=== PATIENT | male | born 1955 | race Caucasian/White ===

== ENCOUNTER → 2020-06-15 | Outpatient (CLI) | payer BC ==
[~2020-06-15] MED LIST: DULOXETINE HCL30 MG PO; FISH OIL 1,2001 EAC3 PO; HYDROCHLOROTHIA25 M2 PO; HYDROCODON-ACE1 EAC7 PO; MS CONTIN15 MG PO; NAPROSYN500 M1 PO; NEURONTIN 300M300 M2 PO; NIACIN 500 MG500 M1 PO; OMEPRAZOLE40 MG PO; POTASSIUM GLUCO99 M2 PO; TOPROL XL50 MG PO; TRAMADOL 50 MG50 MG PO; WARFARIN SODIUM5 MG PO
== END ==
LOC: LAB 08:24
PROVIDERS: ATTEND Orthopaedic Surgery
DX: Z01.812 Encounter for preprocedural laboratory examination (principal)

== ENCOUNTER 2020-06-18 07:22 | Observation (INO) | payer BC, OTHER ==
[2020-06-15 09:59] LABS: HEMATOCRIT 40.9 % (42.0-52.0); MCH 30.3 pg (26.0-34.0); MCHC 34.2 g/dL (28.0-37.0); MCV 88.7 fL (80.0-100.0); RBC 4.6 mil/uL (4.50-6.00); RDW 13.1 % (10.5-14.5); WBC 5.5 thou/uL (4.0-11.0)
[2020-06-15 10:01] LABS: URINE BILIRUBIN NEGATIVE (Negative); URINE BLOOD NEGATIVE (Negative); URINE CLARITY CLEAR; URINE COLOR YELLOW; URINE GLUCOSE-RANDOM* NEGATIVE (Negative); URINE KETONES NEGATIVE (Negative); URINE LEUKOCYTES-REFLEX NEGATIVE (Negative); URINE NITRITE-REFLEX NEGATIVE (Negative); URINE PROTEIN (DIPSTICK) NEGATIVE (Negative); URINE SPECIFIC GRAVITY 1.015 (1.005-1.035); URINE UROBILINOGEN 0.2 E.U./dl (0.2-1.0)
[2020-06-15 10:12] LABS: ALBUMIN 4.1 g/dL (3.4-5.0); CALCIUM 9.5 mg/dL (8.5-10.1); CREATININE 1.1 mg/dL (0.7-1.3); POTASSIUM 4.4 mmol/L (3.5-5.1)
[2020-06-15 10:14] LABS: INR 1.4; PROTIME 14.7 Seconds (9.3-11.4)
[~2020-06-18] VITALS: Ht 182.9 cm; Wt 139.3 kg
[~2020-06-18 07:22] MED LIST changes: -HYDROCODON-ACE1 EAC7 PO; -MS CONTIN15 MG PO; -NEURONTIN 300M300 M2 PO
[2020-06-18 09:11] VITALS: BP 140/97
[2020-06-18 15:28] VITALS: BP 134/78
--- NOTE | 2020-06-18 15:56 | NUR ---
assessment: CM REVIEWED CHART AND MET WITH PATIENT. PT IS ALERT AND ORIENTED X4. PT IS S/P TKA. PT REPORTS LIVING AT HOME WITH HIS IN A HOUSE. PT HAS TWO STEPS TO ENTER WITH NO HANDRAIL. PT REPORTS ONCE INSIDE HE DOES NOT HAVE JING STEPS HE HAS TO USE. PT REPORTS THAT HE AMBULATES INDEPENDENTLY AND DOES NOT HAVE DME. PT WORKED WITH THERAPY AND IS IN NEED OF A WALKER. PT HAS NO PREFERENCE OF DME COMPANY. CM NOTIFIED [employer] AND THEY WILL CHECK PATIENTS INSURANCE IN THE AM. PT REPORTS HE PLANS TO DO OUTPATIENT THERAPY AT [facility] OFF [address] IN [place]. CM WILL CONTINUE TO FOLLOW TO ASSIST NEEDED.
[2020-06-18 17:00] VITALS: BP 141/83
--- NOTE | 2020-06-18 17:35 | NUR ---
PATIENT ADMITTED FROM OR WITH LEFT TOTAL KNEE REPLACEMENT, LAINEY DRESSING, KNEE HIGH SETH HOSE, SCD'S, POLAR CARE IN PLACE. PATIENT DENIES PAIN WHEN ADMISSION STARTED 0/10. PATIENT HAS RIGHT HAND IV IN PLACE. ADMISSION COMPLETED REPORT GIVEN TO ARIAS/YURI.
[2020-06-18 19:15] VITALS: BP 148/94
--- NOTE | 2020-06-18 23:39 | NUR ---
1900 ASSUMED CARE OF PT, 1999 BASELINE ASSESSMENT COMPLETE, PT RESTING IN BED WITH MINIMAL COMPLAINTS OF PAIN, POLAR PACK SETH HOSE AND SCDS IN PLACE, SENSATION TO LLE INTACT, PEDAL PULSES EQUAL AND PALPABLE AT 2+ CAP REFILL TO BLE <3 SEC AND PT ABLE TO MOVE LLE WITHOUT MUCH DIFFICULTY, STATES HE AMBULATED TODAY. FALL PRECAUTIONS IN PLACE, WILL CONTINUE TO MONITOR
[2020-06-19 04:28] VITALS: BP 129/76
[2020-06-19 06:25] LABS: HEMATOCRIT 37.7 % (42.0-52.0); HEMOGLOBIN 12.9 gm/dL (14.0-18.0); MCH 30.3 pg (26.0-34.0); MCHC 34.2 g/dL (28.0-37.0); MCV 88.6 fL (80.0-100.0); RBC 4.25 mil/uL (4.50-6.00); RDW 12.9 % (10.5-14.5); WBC 11.7 thou/uL (4.0-11.0)
[2020-06-19 07:25] VITALS: BP 157/95
[2020-06-19] MEDS ORDERED: HYDROCODON-ACE1 EAC7 PO (09:38)
[2020-06-19] MEDS ORDERED: MS CONTIN15 MG PO (09:39)
[2020-06-19] MEDS ORDERED: NEURONTIN 300M300 M2 PO (09:39)
--- NOTE | 2020-06-19 09:42 | O ---
[facility] [place] [address] OPERATIVE REPORT Name: JERRY MONGE Room #: 446-P [facility] M.R.#: [id number] Admission: 06/18/20 Attend Phys: Rosalio Tan MD Discharge: Date of : 55 Report #: [id number] THIS REPORT FOR: cc: JERZY GOODMAN Physician not on staff Rosalio Tan MD ~ CC: Physician staff JERZY Tan DATE OF SERVICE: 06/18/2020 PREOPERATIVE DIAGNOSIS: Left knee osteoarthritis. POSTOPERATIVE DIAGNOSIS: Left knee osteoarthritis. PROCEDURE: Left total knee arthroplasty using Navio robotic financial sales assistant. SURGEON: Rosalio Tan MD. SENIOR MEDIA PLANNER: Kimberly Blankenship PA-C. INDICATIONS FOR SENIOR MEDIA PLANNER: Throughout the case, extensive retraction and manipulation of the knee was required. This was afforded to me by my financial sales assistant. ANESTHESIA: LMA with an adductor canal block. IMPLANTS: Case and Nephew size 7 Journey II BCS Oxinium femur, size 5 tibia, size 9 constrained polyethylene and size 35 patella. TOURNIQUET TIME: 58 minutes. ESTIMATED BLOOD LOSS: 25 mL. COMPLICATIONS: None. SPECIMENS: None. CONDITION UPON LEAVING THE OPERATING ROOM: Stable. INDICATIONS FOR PROCEDURE: The patient is a 65-year-old gentleman with severe left knee osteoarthritis. He had failed conservative measures for this and after discussion with him, he elected for left total knee arthroplasty. DESCRIPTION OF PROCEDURE: Risks, benefits, alternatives, complications were discussed in detail with the patient including but not limited to risk of [facility] [address] [place] [address] OPERATIVE REPORT Name: JERRY MONGE Room #: 446-P [facility] M.RKalyn#: [id number] Admission: 06/18/20 Attend Phys: Rosalio Tan MD Discharge: Date of : 55 Report #: [id number] anesthesia, risk of damage to nerves, arteries, blood vessels, risk for infection and bleeding, risk for continued knee pain, need for reoperation. Informed consent was obtained from the patient. Left knee was appropriately marked in the preoperative holding area. IV Ancef was given for preoperative antibiotics. He was brought to the operating room and placed in supine position on the operating room table. LMA anesthesia was induced without complication. Tourniquet was placed on the left thigh. Left lower extremity was prepped and draped in normal sterile fashion. Timeout was performed properly identifying the patient and procedure as well as the instrumentation and implants. All in the operating room were in agreement. Left lower extremity was exsanguinated, tourniquet was inflated. Tourniquet time was 58 minutes. Standard midline approach to the knee was made with 10 blade through the skin. Dissection was taken down sharply to the fascia and deep flaps were developed medially and laterally. Fresh 10 blade was used to make a medial parapatellar arthrotomy and the knee was inspected. There was severe tricompartmental osteoarthritis. ACL and PCL were removed sharply. Reference pins were placed in the femur and the tibia. The knee was then digitally mapped using the [employer] robotic system. Intraoperative plan was made and we sized the size 7 femur with a size 5 tibia and a size 10 spacer. After acceptance of the intraoperative plan, the distal femoral cut was made with a Navio bur. Distal femoral cutting block was pinned in place and the chamfer cuts were made. Attention was turned to the tibia. Remainder of the menisci removed with Bovie cautery. Tibial resection guide was pinned in place using the Navio for placement and tibial resection was made. Flexion and extension gaps were then checked and found to have good balance in flexion and extension both medially and laterally. Tibia was sized, found to be a size 5. A size 5 tibial trial was placed, pinned and punched. A size 7 femoral trial was placed and the box cut was made. This was then trialed with a size 9 polyethylene and size 9 polyethylene demonstrated 1-2 millimeter of laxity medially throughout range of motion. There was up to 4 mm of laxity laterally and deep flexion. It was felt we could make up for this with a constrained implant, 9 mm was resected from the posterior surface of the patella and a size 35 patellar trial button was placed. Knee was taken through range of motion, found to be stable, found to have good patellar tracking. Trial components were removed. Bony ends were thoroughly irrigated with normal saline. Final size 5 tibia and size 7 Journey II BCS Oxinium femur and a size 35 patella were cemented in place using standard cementation techniques. While the cement cured, a periarticular injection consisting of morphine, ropivacaine, epinephrine and Toradol were placed around the knee joint capsule. After the cement cured, tourniquet was deflated. Hemostasis was obtained with Bovie cautery. A final size 9 constrained polyethylene was placed. A gram of vancomycin was placed deep in the joint. The fascia was closed with 0 Vicryl, skin was closed with 2-0 Vicryl, skin staple and a LAINEY dressing was applied. [address] [address] OPERATIVE REPORT Name: JERRY MONGE Room #: 446-P [facility] Omar Feliz#: [id number] Admission: 06/18/20 Attend Phys: Rosalio Tan MD Discharge: Date of : 55 Report #: [id number] The patient tolerated this procedure well and went to recovery room under care of anesthesia postoperatively. <ELECTRONICALLY SIGNED> By: Rosalio Tan MD 06/19/20 0942 [id number] Rosalio Tan MD /nt
[2020-06-19 10:59] VITALS: BP 157/95
--- NOTE | 2020-06-19 11:51 | NUR ---
PT CARE ASSUMED AT 0700. A&Ox4. PT UP WITH PT. PAIN CONTROLLED WELL WITH PAIN MEDICATION ON BOARD. LAINEY DRESSING, SCD'S, SETH HOSES, POLAR PACK IN PLACE. DISCHARGE INTRUCTIONS GIVEN TO PT AND SPOUSE WITH NO FURTHER INSTRUCTIONS GIVEN. IV REMOVED. FALL PROTOCOL AND CALL LIGHT IN PLACE.
== END 2020-06-19 11:35 | disposition home or self-care (01) ==
LOC: OR 07:22 → TBA 07:22 → OR 07:24 → 4S 14:12
PROVIDERS: ADMIT Orthopaedic Surgery; ATTEND Orthopaedic Surgery
DX: M17.12 Unilateral primary osteoarthritis, left knee (principal); Z79.899 Other long term (current) drug therapy
CPT/HCPCS: 27447; S2900; 50010; 50101; 50415; 50954; 51130; 51225; 51320; 51412; 53000; 53078; 53365; 56527; 56528; 57095; 57103; 57110; 57127; 57180; 62110; 62900; 64042; 70005

== ENCOUNTER → 2020-09-23 | Outpatient (CLI) | payer BC ==
[~2020-09-23] MED LIST changes: +ALLOPURINOL 10100 M2 PO; +CLARITIN10 MG PO; +CLONAZEPAM 0.50.5 M1 PO; +HYDROCODON-ACE1 EAC7 PO; +LO-DOSE ASPIRIN81 M1 PO; +MS CONTIN15 MG PO; +NAPROSYN500 MG PO; +NEURONTIN 300M300 M2 PO; +PENNSAID112 GM TOP; +TAMSULOSIN HCL0.4 MG PO; +TRAMADOL 50 MG50 MG
[2020-09-23 10:58] LABS: HEMOGLOBIN 12.1 gm/dL (14.0-18.0); MCH 28.3 pg (26.0-34.0); MCHC 33.7 g/dL (28.0-37.0); MCV 84.1 fL (80.0-100.0); RBC 4.28 mil/uL (4.50-6.00); RDW 15.6 % (10.5-14.5); WBC 4.5 thou/uL (4.0-11.0)
[2020-09-23 11:00] LABS: URINE BILIRUBIN NEGATIVE (Negative); URINE BLOOD NEGATIVE (Negative); URINE CLARITY CLEAR; URINE COLOR YELLOW; URINE GLUCOSE-RANDOM* NEGATIVE (Negative); URINE KETONES NEGATIVE (Negative); URINE LEUKOCYTES-REFLEX NEGATIVE (Negative); URINE NITRITE-REFLEX NEGATIVE (Negative); URINE PROTEIN (DIPSTICK) NEGATIVE (Negative); URINE SPECIFIC GRAVITY 1.025 (1.005-1.035); URINE UROBILINOGEN 0.2 E.U./dl (0.2-1.0)
[2020-09-23 11:10] LABS: INR 2.5
[2020-09-23 11:11] LABS: CALCIUM 8.8 mg/dL (8.5-10.1); CREATININE 1.1 mg/dL (0.7-1.3); POTASSIUM 3.9 mmol/L (3.5-5.1)
== END ==
LOC: LAB 09:00
PROVIDERS: ATTEND Orthopaedic Surgery
DX: Z00.00 Encounter for general adult medical examination without abnormal findings (principal)

== ENCOUNTER → 2020-10-01 | Outpatient (CLI) | payer BC | LOC: LAB 07:55 | PROVIDERS: ATTEND Orthopaedic Surgery | DX: Z01.812 Encounter for preprocedural laboratory examination (principal); Z20.822 Contact with and (suspected) exposure to COVID-19 ==